=== PATIENT | male | born 1975 | race Caucasian/White ===

== ENCOUNTER 2022-04-10 03:41 | Emergency (ER) | payer MEDICAID, OTHER ==
[~2022-04-10] VITALS: Ht 177.8 cm; Wt 90.0 kg
[2022-04-10 07:09] LABS: BASOPHILS % 0.1 % (0.0-2.0); HEMATOCRIT. 45.8 % (42.0-52.0); HEMOGLOBIN. 15.7 g/dL (14.0-18.0); LYMPHOCYTES % 26.4 % (20.0-50.0); MEAN CORPUSCULAR VOLUME 90.3 fL (80.0-94.0); MEAN PLATELET VOLUME 7.5 fl (7.4-10.4); MONOCYTES % 8.8 % (2.0-8.0); NEUTROPHILS % 64.7 % (40.0-76.0); PLATELET 221 x1000/uL (130-400); RED BLOOD CELL COUNT 5.07 mill/uL (4.7-6.1); RED CELL DISTRIBUTION WIDTH 14.8 % (11.6-14.6)
[2022-04-10 07:47] LABS: CHLORIDE 106 mEq/L (98-107); ETHANOL BLOOD 189 mg/dL
[2022-04-10] MEDS ORDERED: KETOROLAC 30MG/ML VIAL IV ONE (12:00)
[2022-04-10] MEDS ORDERED: CLONIDINE 0.1MG TABLET PO PRN (14:45)
[2022-04-10] MEDS ORDERED: LORAZEPAM 0.5MG TABLET PO PRN (14:45)
[2022-04-10] MEDS ORDERED: IPRATROPIUM/ALBUTEROL 0.5-3(2.5)MG/3ML NEB HHN PRN (14:45)
[2022-04-10] MEDS ORDERED: ACETAMINOPHEN 325MG TABLET PO PRN ×2 (14:45)
[2022-04-10] MEDS ORDERED: NALOXONE HCL 0.4MG/ML VIAL IV PRN (14:45)
[2022-04-10] MEDS ORDERED: DOCUSATE SODIUM 100MG CAPSULE PO PRN (14:45)
[2022-04-10] MEDS ORDERED: ONDANSETRON HCL 4MG/2ML INJ IV PRN (14:45)
[2022-04-10] MEDS ORDERED: MVI, ADULT NO.1 10 ML, FOLIC ACID 1 MG, THIAMINE HCL 100 MG in SODIUM CHLORIDE 0.9% 1,0... IV NR ×4 (15:30)
[2022-04-10] MEDS ORDERED: VISCOUS LIDOCAINE 2% 15 ML UDC PO STA (15:53)
[2022-04-10] MEDS ORDERED: MAGNESIUM/ALUMINUM HYDROXIDE/SIMETHICONE 30ML UDC PO STA (15:53)
[2022-04-10 16:19] LABS: AMYLASE 40 IU/L (25-115)
[2022-04-10] MEDS: HYDROCODONE/ACETAMINOPHEN 5/325MG TABLET PO PRN ×2 (17:23→22:14)
[2022-04-10] MEDS ORDERED: CHLORDIAZEPOXIDE 25MG CAPSULE PO SCH (22:00)
[2022-04-10 22:21] VITALS: BP 180/102
[2022-04-11] MEDS ORDERED: THIAMINE HCL 100MG TABLET PO SCH (09:00)
[2022-04-11] MEDS ORDERED: FOLIC ACID 1MG TABLET PO SCH (09:00)
== END 2022-04-10 22:26 | disposition short-term general hospital (02) ==
LOC: ER 04:27 → CANBEDREQ 13:00 → ER 22:26
DX: F10.129 Alcohol abuse with intoxication, unspecified (principal); F10.139 Alcohol abuse with withdrawal, unspecified; R07.9 Chest pain, unspecified; Y90.7 Blood alcohol level of 200-239 mg/100 ml; R41.82 Altered mental status, unspecified; R74.01 Elevation of levels of liver transaminase levels; I10 Essential (primary) hypertension; Y08.89XA Assault by other specified means, initial encounter; Y93.89 Activity, other specified; Y92.9 Unspecified place or not applicable; Z88.0 Allergy status to penicillin; Z20.822 Contact with and (suspected) exposure to COVID-19
CPT/HCPCS: 36415; 70450; 70486; 72125; 80053; 80320; 82150; 83690; 84484; 85025; 87426; 93005; 96365; 96366; 96375; 99285; C1893; J1885; J2405; J3411; J3490; J7030; Z7610; G0480